=== PATIENT | male | born 1985 | race Caucasian/White ===

== ENCOUNTER 2017-07-24 11:31 | Emergency (ER) | payer BC ==
[2017-07-24] MEDS ORDERED: NA CHLORIDE 0.9% 1,000 ML ONE (14:11)
[2017-07-24 14:17] LABS: Albumin 4.2 g/dL (3.2-5.5); Bilirubin Direct 0.1 mg/dL (0-0.2); Bilirubin Total 0.7 mg/dL (0.3-1.2); Potassium 3.8 mEq/L (3.6-5.0); Protein, Total 7.1 g/dL (6.0-8.3)
[2017-07-24 14:25] LABS: Absolute Lymphocytes (CBC) 0.9 K/uL (0.7-4.9); Absolute Monocytes 0.9 K/uL (0.1-1.3); Absolute Neutrophil 9.3 K/uL (1.8-8.0); Basophils % 0.3 % (0-1.3); Eosinophils % 0.1 % (0-4.4); Hematocrit 44.1 % (39.6-49.0); Lymphocytes % 8.2 % (15.3-44.8); MCV 85.4 fL (80-100); MPV 8.8 fL (7.6-11.3); RBC Red Blood Cell Count 5.17 M/uL (4.33-5.43)
--- NOTE | 2017-07-24 15:11 | RAD REPORT ---
EXAM DESCRIPTION: CT - Abdomen Pelvis W Contrast - 07/24/2017 2:59 pm CLINICAL HISTORY: Diarrhea, abdominal pain COMPARISON: None. TECHNIQUE: Biphasic, helical CT imaging of the abdomen and pelvis was performed following 100 ml non -ionic IV contrast. Oral contrast was given. All CT scans are performed using dose optimization technique as appropriate and may include automated exposure control or mA/KV adjustment according to patient size. FINDINGS: No suspicious findings in the lung bases. The liver, spleen, and pancreas show no suspicious findings. Gallbladder and biliary tree are also wi thout suspicious finding. Symmetric renal function is seen with no hydronephrosis or suspicious renal mass. No gastric dilatation, mass or wall thickening. Small bowel is not dilated. There are several loops o f bowel that show mild enhancement of the patrick. These are fluid-filled segments. Fluid and stool are scattered in nondilated colon. No colon wall thickening or mass. No free air, free fluid or inflammatory stranding. No hernia, mass or bulky lymphadenopathy. The uri nary bladder is without significant finding. No adrenal abnormality. No suspicious bony findings. IMPRESSION: Mild small bowel enteritis pattern. No obstruction, free air or emergent finding.
--- NOTE | 2017-07-24 15:18 | ER ---
Nurse's Notes [facility] Name: Colten Hanks Age: 32 yrs Sex: Male : 1985 Arrival Date: 07/24/2017 Time: 11:32 Bed 23 Private MD: None, None Diagnosis: Enteritis;Dehydration Presentation: 07/24 11:37 Presenting complaint: Patient states: Diarrhea, muscle aches, headache and dizziness aj since this AM. Ambulated to triage with steady gait. Transition of care: patient was not received from another setting of care. Onset of symptoms was July 24, 2017. Risk Assessment: Do you want to hurt yourself or someone else? Patient reports no desire to harm self or others. Care prior to arrival: None. 11:37 Method Of Arrival: Ambulatory aj 11:37 Acuity: YVROSE 4 aj 13:09 Initial Sepsis Screen: Does the patient meet any 2 criteria? No. Patient's initial kr2 sepsis screen is negative. Does the patient have a suspected source of infection? No. Patient's initial sepsis screen is negative. Triage Assessment: 11:38 General: Appears in no apparent distress. comfortable, Behavior is calm, cooperative, aj appropriate for age. Pain: Denies pain. Neuro: Level of Consciousness is awake, alert, obeys commands, Oriented to person, place, time, situation, Appropriate for age Power Project Manager are equal bilaterally Moves all extremities. Full function Gait is steady, Speech is normal, Facial symmetry appears normal, Reports dizziness, headache. Respiratory: Airway is patent Respiratory effort is even, unlabored, Respiratory pattern is regular, symmetrical. GI: Reports diarrhea. Derm: Skin is intact, is healthy with good turgor, Skin is pink, warm \T\ dry. normal. Historical: - Allergies: 11:38 No Known Allergies; aj - Home Meds: 11:38 None [Active]; aj - PMHx: 11:38 None; aj - PSHx: 11:38 None; aj - Immunization history:: Adult Immunizations up to date. - Social history:: Smoking status: Patient/guardian denies using tobacco. - Ebola Screening: : Patient negative for fever greater than or equal to 101.5 degrees Fahrenheit, and additional compatible Ebola Virus Disease symptoms Patient denies exposure to infectious person Patient denies travel to an Ebola-affected area in the 21 days before illness onset No symptoms or risks identified at this time. Screenin:08 Abuse screen: Denies threats or abuse. Denies injuries from another. Nutritional kr2 screening: No deficits noted. Tuberculosis screening: No symptoms or risk factors identified. Fall Risk None identified. Assessment: 13:06 General: Appears in no apparent distress. uncomfortable, well groomed, well developed, kr2 well nourished, Behavior is calm, cooperative, appropriate for age. Pain: Complains of pain in left parietal area and right parietal area Pain does not radiate. Pain currently is 8 out of 10 on a pain scale. Quality of pain is described as aching, throbbing, Pain began yesterday Is continuous, Alleviated by nothing. Neuro: Level of Consciousness is awake, alert, obeys commands, Oriented to person, place, time, situation, Appropriate for age Power Project Manager are equal bilaterally Moves all extremities. Full function Gait is steady, Speech is normal, Facial symmetry appears normal, Pupils are PERRLA, Intact Reports dizziness, since yesterday headache since yesterday. Cardiovascular: Capillary refill < 3 seconds in bilateral fingers Patient's skin is warm and dry. Respiratory: Airway is patent Respiratory effort is even, unlabored, Respiratory pattern is regular, symmetrical. GI: Abdomen is flat, non-distended, Reports diarrhea, nausea. : No signs and/or symptoms were reported regarding the genitourinary system. EENT: Oral mucosa is moist. Derm: Skin is intact, is healthy with good turgor, Skin is pink, warm \T\ dry. Musculoskeletal: Circulation, motion, and sensation intact. 14:49 Reassessment: Patient appears in no apparent distress at this time. Patient and/or kr2 family updated on plan of care and expected duration. Pain level reassessed. Patient is alert, oriented x 3, equal unlabored respirations, skin warm/dry/pink. Patient in CT at this time. Received call from CT that IV had infiltrated when attempting to flush prior to contrast infusion. Existing IV removed, catheter intact, bleeding controlled, bandage applied. New IV placed, see procedure notes. 15:05 Reassessment: Patient appears in no apparent distress at this time. Patient and/or kr2 family updated on plan of care and expected duration. Pain level reassessed. Patient is alert, oriented x 3, equal unlabored respirations, skin warm/dry/pink. Patient back from CT, placed back on NIBP and pulse ox monitor and IV fluids. Vital Signs: 11:38 BP 107 / 72; Pulse 105; Resp 16; Temp 99.1; Pulse Ox 98% on R/A; Weight 97.52 kg; aj Height 6 ft. 4 in. (193.04 cm); 13:24 BP 110 / 87; Pulse 87; Resp 17; Pulse Ox 100% on R/A; kr2 15:47 BP 114 / 66; Pulse 86; Resp 17; Pulse Ox 99% on R/A; kr2 11:38 Body Mass Index 26.17 (97.52 kg, 193.04 cm) aj ED Course: 11:32 Patient arrived in ED. sb2 11:33 None, None is Private Physician. sb2 11:38 Triage completed. aj 11:38 Arm band placed on left wrist. Patient placed in waiting room, Patient notified of wait aj time. 13:03 Drea Harper, ADIA is Primary Nurse. kr2 13:06 Vinh Puente PA is PHCP. jr8 13:06 Chava Harris MD is Attending Physician. jr8 13:09 Patient has correct armband on for positive identification. Bed in low position. Call kr2 light in reach. Side rails up X 1. Pulse ox on. NIBP on. Door closed. Warm blanket given. Head of bed elevated. 13:30 Inserted saline lock: 22 gauge in right antecubital area, using aseptic technique. kr2 Blood collected. 14:42 Patient moved to CA via wheelchair. vr 14:49 IV discontinued, intact, bleeding controlled, Pressure dressing applied. kr2 14:50 Inserted saline lock: 22 gauge in left antecubital area, using aseptic technique. kr2 14:59 CT completed. Patient tolerated procedure well. Patient moved back from CT. nj 14:59 CT Abd/Pelvis - W/Contrast In Process Unspecified. EDMS 15:47 No provider procedures requiring assistance completed. IV discontinued, intact, kr2 bleeding controlled, No redness/swelling at site. Pressure dressing applied. Administered Medications: 14:13 Drug: NS 0.9% 1000 ml Route: IV; Rate: 1000 ml; Site: right antecubital; kr2 Outcome: 15:18 Discharge ordered by . jr8 15:47 Discharged to home ambulatory, with family. kr2 15:47 Condition: good 15:47 Discharge instructions given to patient, family, Instructed on discharge instructions, follow up and referral plans. medication usage, Demonstrated understanding of instructions, follow-up care, medications, Prescriptions given X 2. 15:48 Patient left the ED. kr2 Signatures: Dispatcher [employer] EDMS Coreen Rea, RN RN Gina Plaza Josh, PA PA jr8 Spencer Cortes Karey, RN RN kr2 Juli Maldonado sb2 Corrections: (The following items were deleted from the chart) 14:59 14:55 Reassessment: Patient appears in no apparent distress at this time. Patient kr2 and/or family updated on plan of care and expected duration. Pain level reassessed. Patient is alert, oriented x 3, equal unlabored respirations, skin warm/dry/pink. Patient in CT at this time. Received call from CT that IV had infiltrated when attempting to flush prior to contrast infusion. Existing IV removed, catheter intact, bleeding controlled, bandage applied. kr2
--- NOTE | 2017-07-24 15:18 | EDPHYS ---
Physician Documentation [facility] Name: Colten Hanks Age: 32 yrs Sex: Male : 1985 Arrival Date: 07/24/2017 Time: 11:32 Bed 23 Private MD: None, None ED Physician Chava Harris HPI: 07/24 14:15 This 32 yrs old Male presents to ER via Ambulatory with complaints of jr8 Headache, Diarrhea, Dizziness. 14:15 Patient stated that he started with headache, dizziness, fevers, and abdominal and body jr8 cramping last night. Diarrhea for the past couple of days. Severity of symptoms: At their worst the symptoms were moderate in the emergency department the symptoms are unchanged. The patient has not experienced similar symptoms in the past. The patient has not recently seen a physician. Historical: - Allergies: 11:38 No Known Allergies; aj - Home Meds: 11:38 None [Active]; aj - PMHx: 11:38 None; aj - PSHx: 11:38 None; aj - Immunization history:: Adult Immunizations up to date. - Social history:: Smoking status: Patient/guardian denies using tobacco. - Ebola Screening: : Patient negative for fever greater than or equal to 101.5 degrees Fahrenheit, and additional compatible Ebola Virus Disease symptoms Patient denies exposure to infectious person Patient denies travel to an Ebola-affected area in the 21 days before illness onset No symptoms or risks identified at this time. ROS: 14:15 Eyes: Negative for injury, pain, redness, and discharge, ENT: Negative for injury, jr8 pain, and discharge, Neck: Negative for injury, pain, and swelling, Cardiovascular: Negative for chest pain, palpitations, and edema, Respiratory: Negative for shortness of breath, cough, wheezing, and pleuritic chest pain, Back: Negative for injury and pain, MS/Extremity: Negative for injury and deformity, Skin: Negative for injury, rash, and discoloration. 14:15 Abdomen/GI: Positive for abdominal pain, diarrhea, abdominal cramps, Negative for nausea and vomiting, abdominal distension, anorexia, dysphagia, hematemesis, black/tarry stool, rectal pain, rectal bleeding, bowel incontinence, flatulence. 14:15 Neuro: Positive for dizziness, headache, Negative for altered mental status, gait disturbance, hearing loss, loss of consciousness, numbness, seizure activity, speech changes, syncope, near syncope, tingling, tinnitus, tremor, visual changes, weakness. Exam: 14:15 Head/Face: Normocephalic, atraumatic. Eyes: Pupils equal round and reactive to light, jr8 extra-ocular motions intact. Lids and lashes normal. Conjunctiva and sclera are non-icteric and not injected. Cornea within normal limits. Periorbital areas with no swelling, redness, or edema. ENT: Nares patent. No nasal discharge, no septal abnormalities noted. Tympanic membranes are normal and external auditory canals are clear. Oropharynx with no redness, swelling, or masses, exudates, or evidence of obstruction, uvula midline. Mucous membranes moist. Neck: Trachea midline, no thyromegaly or masses palpated, and no cervical lymphadenopathy. Supple, full range of motion without nuchal rigidity, or vertebral point tenderness. No Meningismus. Cardiovascular: Regular rate and rhythm with a normal S1 and S2. No gallops, murmurs, or rubs. Normal PMI, no JVD. No pulse deficits. Respiratory: Lungs have equal breath sounds bilaterally, clear to auscultation and percussion. No rales, rhonchi or wheezes noted. No increased work of breathing, no retractions or nasal flaring. Back: No spinal tenderness. No costovertebral tenderness. Full range of motion. Skin: Warm, dry with normal turgor. Normal color with no rashes, no lesions, and no evidence of cellulitis. MS/ Extremity: Pulses equal, no cyanosis. Neurovascular intact. Full, normal range of motion. Neuro: Awake and alert, GCS 15, oriented to person, place, time, and situation. Cranial nerves II-XII grossly intact. Motor strength 5/5 in all extremities. Sensory grossly intact. Cerebellar exam normal. Normal gait. 14:15 Abdomen/GI: Inspection: abdomen appears normal, Bowel sounds: active, all quadrants, Palpation: soft, in all quadrants, mild abdominal tenderness, in the right lower quadrant, mass, is not appreciated, rebound tenderness, is not appreciated, voluntary guarding, is not appreciated, involuntary guarding, is not appreciated, no appreciated organomegaly, Indicators: McBurney's point is not tender, Snow's sign is negative, Rovsing's sign is negative, Obturator sign is negative, Psoas sign is negative, Liver: no appreciated palpable abnormalities, tenderness, is not appreciated. Vital Signs: 11:38 BP 107 / 72; Pulse 105; Resp 16; Temp 99.1; Pulse Ox 98% on R/A; Weight 97.52 kg; aj Height 6 ft. 4 in. (193.04 cm); 13:24 BP 110 / 87; Pulse 87; Resp 17; Pulse Ox 100% on R/A; kr2 15:47 BP 114 / 66; Pulse 86; Resp 17; Pulse Ox 99% on R/A; kr2 11:38 Body Mass Index 26.17 (97.52 kg, 193.04 cm) aj MDM: 13:06 Patient medically screened. jr8 15:17 Data reviewed: vital signs, nurses notes, lab test result(s), radiologic studies, CT jr8 scan, and as a result, I will discharge patient. Data interpreted: Pulse oximetry: on room air is 100 %. Interpretation: normal. Counseling: I had a detailed discussion with the patient and/or guardian regarding: the historical points, exam findings, and any diagnostic results supporting the discharge/admit diagnosis, lab results, radiology results, the need for outpatient follow up, a family practitioner, to return to the emergency department if symptoms worsen or persist or if there are any questions or concerns that arise at home. Response to treatment: the patient's symptoms have markedly improved after treatment, patient is well hydrated. 07/24 13:35 Order name: Basic Metabolic Panel; Complete Time: 14:20 07/24 13:35 Order name: CBC with Diff; Complete Time: 14:30 07/24 13:35 Order name: Creatinine for Radiology; Complete Time: 14:12 07/24 13:35 Order name: Hepatic Function; Complete Time: 14:20 07/24 13:35 Order name: Lipase; Complete Time: 14:20 07/24 13:35 Order name: CPK; Complete Time: 14:20 07/24 13:35 Order name: IV Saline Lock; Complete Time: 13:48 07/24 13:35 Order name: Labs collected and sent; Complete Time: 13:48 07/24 14:13 Order name: CT Abd/Pelvis - W/Contrast; Complete Time: 15:16 jr8 Administered Medications: 14:13 Drug: NS 0.9% 1000 ml Route: IV; Rate: 1000 ml; Site: right antecubital; kr2 Disposition: 16:21 Co-signature as Attending Physician, Chava Harris MD. rn Disposition: 07/24/17 15:18 Discharged to Home. Impression: Enteritis, Dehydration. - Condition is Stable. - Discharge Instructions: Dehydration, Adult. - Prescriptions for Bentyl 20 mg Oral Tablet - take 1 tablet by ORAL route every 6 hours As needed; 20 tablet. Zofran 4 mg Oral Tablet - take 1 tablet by ORAL route every 12 hours As needed; 20 tablet. - Medication Reconciliation Form, Thank You Letter, Antibiotic Education, Prescription Opioid Use, Work release form form. - Follow up: Private Physician; When: 2 - 3 days; Reason: Recheck today's complaints, Continuance of care, Re-evaluation by your physician. - Problem is new. - Symptoms have improved. - Notes: Immodium OTC Signatures: Dispatcher [employer] EDCoreen Clark RN Chava Laws MD MD rn Roszak, Josh, PA PA jr8 Drea Harper RN RN kr2 Corrections: (The following items were deleted from the chart) 15:48 15:18 07/24/2017 15:18 Discharged to Home. Impression: Enteritis; Dehydration. kr2 Condition is Stable. Forms are Medication Reconciliation Form, Thank You Letter, Antibiotic Education, Prescription Opioid Use. Follow up: Private Physician; When: 2 - 3 days; Reason: Recheck today's complaints, Continuance of care, Re-evaluation by your physician. Problem is new. Symptoms have improved. jr8
== END 2017-07-24 15:48 | disposition home or self-care (01) ==
LOC: ER 11:31
DX: K52.9 Noninfective gastroenteritis and colitis, unspecified (principal); E86.0 Dehydration
CPT/HCPCS: 36415; 74177; 80048; 80076; 82550; 83690; 85025; 99284; J7030; Q9967